=== PATIENT | female | born 1990 | race Caucasian/White ===

== ENCOUNTER 2017-10-01 09:23 | Emergency (ER) | payer MEDICAID ==
[~2017-10-01] VITALS: Ht 157.5 cm; Wt 78.9 kg
[2017-10-01] MEDS ORDERED: TOVIAZ4 MG PO (09:36)
[2017-10-01] MEDS ORDERED: JUNEL FE 1 MG-1 EACH PO (09:36)
[2017-10-01] MEDS ORDERED: [UNRECOGNIZED DRUG - OTHER] (09:36)
[2017-10-01] MEDS ORDERED: MYDAYIS ER 25 M25 MG PO (09:36)
[2017-10-01] MEDS ORDERED: [UNRECOGNIZED DRUG - OTHER] (09:36)
[2017-10-01] MEDS ORDERED: Bactrim-DS 1 tab ORAL ONE (10:15)
--- NOTE | 2017-10-01 10:32 | Emergency Room Report ---
History of Present Illness General Chief Complaint: Earache Source: Patient Present Illness HPI Patient presents with ear swelling and pain. Dad was able to remove the left ear ringing entirely. They're worried there might be a backing that might be stuck in the right ear lobe. She denies any fevers or chills but is complaining about some mild pain there. Her tetanus is up-to-date. H/O developmental delay. No NVD, other rashes, cough, dysuria. 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 Now: No Reviewed Nursing Documentation: PMH: Agreed; PSxH: Agreed Nursing Documentation-PMH Past Medical History: No History, Except For Hx Neurological Problems: No - developmental disabled Review of Systems All Other Systems: negative except mentioned in HPI Physical Exam Vital Signs Date Time Temp Pulse Resp B/P (MAP) Pulse Ox O2 Delivery O2 Flow Rate FiO2 10/01/17 09:29 98.9 87 17 144/91 97 Room Air 99.0 Sp02 EP Interpretation: reviewed, normal General Appearance: well appearing, no apparent distress Head: normocephalic, atraumatic Eyes: bilateral eye normal inspection, bilateral eye PERRL ENT: hearing grossly normal, normal voice, TMs + canals normal, other - bilat lobes with swelling. No drainage. Can't tell if FB. Neck: full range of motion, supple Respiratory: no respiratory distress, speaking full sentences Cardiovascular #1: regular rate, rhythm Cardiovascular #2: 2+ radial (L) Gastrointestinal: normal inspection Musculoskeletal: digits/nails normal, gait/station normal, normal range of motion Neurologic: alert, grossly normal Psychiatric: mood/affect normal - naive Skin: other - see ENT Procedures Incision and Drainage Incision and Drainage : Consent: Verbal Site: R ear lobe Blade Size: 11 I & D Procedure: betadine prep Wound Location: other Wound's Depth, Shape: other - in SC tissue Wound Length (cm): 0 - 0.5 Wound Explored: foreign body removed Irrigated w/ Saline (ccs): 10 Anesthesia: 1% Lidocaine Volume Anesthetic (ccs): 0 - 0.5 Patient Tolerated: Well Complications: None Progress bleeding cotrolled and bacitracin applied Medical Decision Making Diagnostic Impression: Primary Impression: Foreign body removal right earlobe Additional Impressions: Cellulitis Qualified Codes: L03.818 - Cellulitis of other sites Foreign body (FB) in soft tissue ER Course Patient with possible FB R earlobe. Also inflammation of ear lobes bilat. Evidence of cellulitis. Need x-ray for ? FB. Xray with FB. FB removal. Bactrim begun. Patient stable for outpatient observation and treatment. Last Vital Signs Date Time Temp Pulse Resp B/P (MAP) Pulse Ox O2 Delivery O2 Flow Rate FiO2 10/01/17 11:58 97.9 85 18 138/80 98 Room Air 99.0 Status: improved Disposition: HOME, SELF-CARE Condition: Improved Scripts Acetaminophen (Tylenol) 325 Mg Tablet 650 MG ORAL Q6H PRN for Prn Pain/Headache/Temp > 101, #20 TAB 0 Refills Prov: Joe Swanson M.D. 10/01/17 Bacitracin (Bacitracin) 28.4 Gm Oint...g. 1 APPLIC TOPIC BID, #10 GM Prov: Joe Swanson M.D. 10/01/17 Trimethoprim/Sulfamethoxazole 160/800* (BACTRIM DS TABLET*) 1 Each Tablet 1 TAB ORAL Q12H, #14 TAB 0 Refills Prov: Joe Swanson M.D. 10/01/17 Referrals: NON PHYSICIAN (PCP) Joe Swanson M.D. Oct 01, 2017 10:32
[2017-10-01] MEDS ORDERED: Lidocaine 1% MPF 10mg/ml 5ml INJ ONE (11:00)
[2017-10-01] MEDS ORDERED: Bacitracin Oint UD TOPIC ONE (11:00)
[2017-10-01] MEDS ORDERED: TYLENOL325 MG ORAL (11:48)
[2017-10-01] MEDS ORDERED: BACTRIM DS TAB1 EAC1 ORAL (11:48)
[2017-10-01] MEDS ORDERED: BACITRACIN15 GM TOPIC (11:48)
[2017-10-01 11:58] VITALS: BP 138/80
--- NOTE | 2017-10-02 10:27 | Diagnostic Imaging Report ---
Indication: Right ear infection/pain Technique: XRAY C Spine 1V Comparison: None Findings: There is a probable right earring. Otherwise no gross soft tissue abnormalities are identified. No gross acute osseous anomalies are seen. Impression: Limited examination. Metallic probable right earring. Clinical correlation recommended.
== END 2017-10-01 11:58 | disposition home or self-care (01) ==
LOC: EMR 09:55
DX: T16.1XXA Foreign body in right ear, initial encounter (principal); X58.XXXA Exposure to other specified factors, initial encounter; Y92.9 Unspecified place or not applicable; L03.90 Cellulitis, unspecified
CPT/HCPCS: 10120; 72020; 99284